=== PATIENT | female | born 1975 | race Caucasian/White ===

== ENCOUNTER 2019-03-16 12:26 | Emergency (ER) | payer SELFPAY ==
--- NOTE | 2019-03-16 12:39 | ED.SYNCOPE ---
HPI - Syncope General Chief Complaint: Syncope Stated Complaint: Near Syncope Time Seen by Provider: 03/16/19 12:27 Source: patient and EMS Mode of arrival: EMS Limitations: no limitations History of Present Illness HPI narrative: This is a 43-year-old female who comes to the emergency department with complaint of lightheadedness. Patient states that she has been having hematuria for several days. She has been having dysuria as well as urgency and frequency. She denies abdominal pain, she denies flank pain. She denies any fevers but felt a little bit chilled while she was at the police department. She was there getting finger prints for a permit which he started feeling lightheaded. She states it seemed like they got sort of white coloration sat or lied down and they put her legs up. Patient states she did not lose consciousness. She states she has felt under the weather for last several days and thinks she might be getting sick and possibly have a UTI. She states that she has had them on and off over the years. She has required antibiotics in the past. She states she typically gets hematuria when she has UTIs. She thinks she may be anemic but she does not follow the primary care. She denies any other medical issues. She states she has had a D&C in the past and cryo on her cervix no other surgeries. She denies tobacco, very rare alcohol, no illicit. She is accompanied by her young son. Related Data Home Medications Medication Instructions Recorded Confirmed Lactobacillus acidophilus 1 tab PO QDAY #0 01/07/17 [cranberry] #0 01/07/17 cholecalciferol (vitamin D3) 1 tab PO QDAY #0 01/07/17 [Vitamin D3] magnesium citrate 100 mg PO #0 01/07/17 multivitamin [Multiple Vitamins] 1 tab PO QDAY #0 01/07/17 omega 1-bir-loh-fish oil [Fish Oil] 1,000 mg PO #0 01/07/17 phytonadione (vitamin K1) 5 mg PO #0 01/07/17 [Mephyton] Previous Rx's Medication Instructions Recorded ciprofloxacin HCl 500 mg PO BID #14 tab 03/16/19 phenazopyridine [Pyridium] 200 mg PO TID PRN 2 Days #6 tab 03/16/19 Allergies Allergy/AdvReac Type Severity Reaction Status Date / Time erythromycin base Allergy Intermediate Unverified 11/18/17 12:36 Review of Systems Review of Systems ROS Unobtainable: All systems reviewed & are unremarkable except as noted in HPI and below Constitutional Reports chills, Denies fever(s), Denies lethargy and Denies weakness Cardiovascular Denies chest pain, Denies diaphoresis, Denies syncope, Reports rapid heart rate, Denies edema, Denies irregular heart rhythm, Reports lightheadedness, Denies palpitations, Denies dyspnea, Denies dyspnea on exertion and Denies orthopnea Respiratory Denies chest congestion, Denies cough, Denies hemoptysis, Denies dyspnea, Denies dyspnea on exertion and Denies wheezing Gastrointestinal Gastrointestinal: Denies abdominal pain, Denies melena, Denies bloating, Denies change in bowel habits, Denies diarrhea, Reports nausea (mild, resolved.) and Denies vomiting Genitourinary Reports as per HPI, Denies abnormal menses, Denies abnormal vaginal bleeding, Denies hematuria, Reports urinary frequency, Reports dysuria, Denies pelvic pain, Denies flank pain, Denies urinary incontinence, Denies urinary hesitancy, Denies urinary urgency and Denies vaginal discharge Musculoskeletal Denies back pain, Denies numbness and Reports tingling (in hands while urinating) Integumentary/Breasts Denies rash Neurologic Denies syncope, Denies numbness, Reports tingling (in hands while urinating) and Denies weakness Endocrine Denies palpitations Allergic/Immunologic Denies wheezing [facility] Surgical History History of third molar tooth extraction Status post dilation and curettage Social History (Updated 03/16/19 @ 12:42 by oRro George DO) marital status: Smoking Status: Never smoker alcohol intake: current substance use type: does not use Exam Narrative Exam Narrative: GEN: well nourished, well appearing female, alert and oriented x 3, patient appears to be in mild distress. HEENT: Atraumatic, pupils are equal round reactive to light, extraocular movements are intact, nares are clear, there is no conjunctival pallor. HEART: Regular rate and rhythm without murmur, clicks, rubs. No carotid bruits, pulses are equal in upper and lower extremities LUNGS:Lungs clear to auscultation, no wheezes, rales, crackles, chest moves symmetrically ABD:bowel sounds normal, soft, non-tender, no guarding, rebound, rigidity, no masses noted, no hepatosplenomegaly :No CVA tenderness MSCL: Non-tender, no muscle atrophy, muscles strength 5/5 upper and lower extremities, full range of motion NEURO:CN 2-12 intact, sensation normal Initial Vital Signs Initial Vital Signs: Vital Signs Temperature 98.9 F 03/16/19 12:45 Pulse Rate 76 03/16/19 12:45 Respiratory Rate 20 03/16/19 12:45 Blood Pressure 104/58 L 03/16/19 12:45 Pulse Oximetry 99 03/16/19 12:45 Scores GCS [place] coma scale eye opening: Spontaneous [place] coma scale verbal response: Orientated [place] coma scale motor response: Obey commands [place] coma scale total score: 15 Course Orders Ordered: ED Orders 03/16/19 12:43 Test Urine Stat UA dip and micro [Urinalysis and Microscopic] Stat Urine Culture Stat 03/16/19 13:12 Basic Metabolic Panel Stat Complete Blood Count AUTO DIFF Stat Discontinued Medications Sodium Chloride (Normal Saline 0.9%) 1,000 mls @ 1,000 mls/hr IV BOLUS ONE Stop: 03/16/19 14:48 Last Infusion: 03/16/19 15:31 Dose: 0 mls/hr Admin: 03/16/19 13:51 Dose: 1,000 mls/hr Vital Signs - 8 hr 03/16/19 12:45 03/16/19 13:10 03/16/19 13:30 Temperature 98.9 F Pulse Rate 76 73 74 Respiratory Rate 20 10 L 12 Blood Pressure 104/58 L Blood Pressure [Left Arm] 107/64 100/64 Pulse Oximetry 99 100 100 03/16/19 14:00 03/16/19 14:55 03/16/19 15:37 Temperature Pulse Rate 75 72 72 Respiratory Rate 19 16 Blood Pressure 111/76 Blood Pressure [Left Arm] 107/69 110/61 Pulse Oximetry 100 100 100 MDM - Syncope Lab Data Result diagrams: 03/16/19 13:12 03/16/19 13:12 Lab Results 03/16/19 03/16/19 03/16/19 Range/Units 12:43 12:43 13:12 WBC 16.0 H (4.5-11.0) X10^3/uL RBC 4.29 (4.0-5.2) X10^6/uL Hgb 13.4 (12.0-16.0) g/dL Hct 39.7 (36-46) % MCV 92.6 (80-100) fL MCH 31.3 (26-34) PG MCHC 33.8 (30-36) % RDW 12.5 (11.6-14.8) % Plt Count 301 (150-400) X10^3/uL Neut % (Auto) 80.9 H (50-75) % Lymph % (Auto) 10.8 L (25-40) % [place] % (Auto) 7.3 (3-14) % Eos % (Auto) 0.5 L (2-4) % Baso % (Auto) 0.5 (0-2) % Neut # (Auto) 56655 H (6166-3660) /uL Lymph # (Auto) 1700 (2163-6169) /uL [place] # (Auto) 1200 H (0-900) /uL Eos # (Auto) 100 (0-450) /uL Baso # (Auto) 100 (0-100) /uL Sodium (137-145) mmol/L Potassium (3.4-5.1) mmol/L Chloride (98-107) mmol/L Carbon Dioxide (22-32) mmol/L BUN (7-17) mg/dL Creatinine (0.52-1.04) mg/dL Estimated GFR (>60) mL/min BUN/Creatinine Ratio (6-22) Glucose (70-100) mg/dL Calcium (8.4-10.2) mg/dL Urine Color Red Urine Appearance Turbid Urine pH 8.5 H (4.5-8.0) Ur Specific [place] 1.020 (1.000-1.035) Urine Protein 3+ H (Negative) Urine Glucose (UA) Negative (Negative) g/dL Urine Ketones Negative (NEGATIVE) Urine Occult Blood 3+ H (Negative) Urine Nitrate Negative (Negative) Urine Bilirubin Negative (NEGATIVE) Urine Urobilinogen 0.2 (0.2) E.U./dL Ur Leukocyte Esterase 1+ H (NEGATIVE) Urine RBC >100/hpf H (0-5/HPF) Urine WBC >100/hpf H (0-5/HPF) Urine Bacteria None seen (None) Ur Culture Indicated? Specimen cultured Urine Test Negative (Negative) 03/16/19 Range/Units 13:12 WBC (4.5-11.0) X10^3/uL RBC (4.0-5.2) X10^6/uL Hgb (12.0-16.0) g/dL Hct (36-46) % MCV (80-100) fL MCH (26-34) PG MCHC (30-36) % RDW (11.6-14.8) % Plt Count (150-400) X10^3/uL Neut % (Auto) (50-75) % Lymph % (Auto) (25-40) % [place] % (Auto) (3-14) % Eos % (Auto) (2-4) % Baso % (Auto) (0-2) % Neut # (Auto) (4395-7727) /uL Lymph # (Auto) (2844-3398) /uL [place] # (Auto) (0-900) /uL Eos # (Auto) (0-450) /uL Baso # (Auto) (0-100) /uL Sodium 139 (137-145) mmol/L Potassium 3.4 (3.4-5.1) mmol/L Chloride 101 (98-107) mmol/L Carbon Dioxide 29 (22-32) mmol/L BUN 16 (7-17) mg/dL Creatinine 0.80 (0.52-1.04) mg/dL Estimated GFR > 60.0 (>60) mL/min BUN/Creatinine Ratio 20.0 (6-22) Glucose 81 (70-100) mg/dL Calcium 9.3 (8.4-10.2) mg/dL Urine Color Urine Appearance Urine pH (4.5-8.0) Ur Specific [place] (1.000-1.035) Urine Protein (Negative) Urine Glucose (UA) (Negative) g/dL Urine Ketones (NEGATIVE) Urine Occult Blood (Negative) Urine Nitrate (Negative) Urine Bilirubin (NEGATIVE) Urine Urobilinogen (0.2) E.U./dL Ur Leukocyte Esterase (NEGATIVE) Urine RBC (0-5/HPF) Urine WBC (0-5/HPF) Urine Bacteria (None) Ur Culture Indicated? Urine Test (Negative) MDM Narrative Medical decision making narrative: Patient's lab work shows Patient was quite worried about cost, by her description she has had a lot hematuria dysuria urgency which makes me suspect she probably does have a UTI which may have led to her pre syncopal episode. Patient denies any chest pain, shortness of breath. She defers IV fluids but is willing to do an IV so we have axis and do basic blood work and point of care urine. Patient has frankly bloody urine, sent for UA and shows leuks as well as blood. No nitrates are noted. Microscopy shows greater than 100 RBCs and WBCs. White count of 16 along with no anemia but electrolytes are normal with normal renal function. I discussed with patient I suspect she does have a significant UTI and/or possibly pyelo although she has been afebrile with no flank pain no nausea or vomiting or other signs I would treat her initially the UTI. We did discuss doing additional imaging patient defers. She was able to ambulate to the bathroom but felt a little lightheaded, refused IV fluids again and wanted orally hydrate but then changed her mind later. 1 L fluid was given and re-evaluation shows improvement of patient. She is feeling better, ambulating about the department. Discharge Plan Departure Patient Disposition: Home Clinical Impression: UTI (urinary tract infection), Hematuria Discharge Date/Time: 03/16/19 15:38 Interventions: ED Discharge Assessment Last Done: 03/16/19 15:37 Activity Restrictions/Additional Instructions: Follow up for recheck and to make sure your hematuria has resolved. If you continue to have hematuria you should have further imaging or evaluation. Take antibiotics until completely gone. Take Pyridium 1 tablet every 6-8 hours as needed for bladder spasm. This medication will cause your urine to be bright orange. You may take Tylenol up to a 1000 mg every 8 hours as needed for pain and/or ibuprofen up to 600 mg every 6 hours as needed for pain. Return to the emergency department for fevers greater than 100.4 F, passing out or recurrent lightheadedness, persistent vomiting, new chest pain, shortness of breath, no abdominal pain, back or flank pain, worsening symptoms, black or bloody stools or other new or concerning symptoms. Prescriptions: New phenazopyridine [Pyridium] 200 mg tablet 200 mg PO TID PRN (Reason: pain) 2 Days Qty: 6 RF: 0 ciprofloxacin HCl 500 mg tablet 500 mg PO BID Qty: 14 RF: 0 No Action multivitamin [Multiple Vitamins] 1 EACH tablet 1 tab PO QDAY Qty: 0 RF: 0 Lactobacillus acidophilus 1 EACH capsule 1 tab PO QDAY Qty: 0 RF: 0 phytonadione (vitamin K1) [Mephyton] 5 MG tablet 5 mg PO Qty: 0 RF: 0 cholecalciferol (vitamin D3) [Vitamin D3] 2,000 UNIT tablet 1 tab PO QDAY Qty: 0 RF: 0 omega 7-pai-bvh-fish oil [Fish Oil] 1,000 MG capsule 1,000 mg PO Qty: 0 RF: 0 magnesium citrate 100 MG tablet 100 mg PO Qty: 0 RF: 0 [cranberry] Qty: 0 RF: 0 Referrals: Niurka Orellana MD [Primary Care Provider] -
--- NOTE | 2019-03-16 12:44 | ED_ITS ---
HPI - Syncope General Chief Complaint: Syncope Stated Complaint: Near Syncope Time Seen by Provider: 03/16/19 12:27 Source: patient and EMS Mode of arrival: EMS Limitations: no limitations History of Present Illness HPI narrative: This is a 43-year-old female who comes to the emergency department with complaint of lightheadedness. Patient states that she has been having hematuria for several days. She has been having dysuria as well as urgency and frequency. She denies abdominal pain, she denies flank pain. She denies any fevers but felt a little bit chilled while she was at the police department. She was there getting finger prints for a permit which he started feeling lightheaded. She states it seemed like they got sort of white coloration sat or lied down and they put her legs up. Patient states she did not lose consciousness. She states she has felt under the weather for last several days and thinks she might be getting sick and possibly have a UTI. She states that she has had them on and off over the years. She has required antibiotics in the past. She states she typically gets hematuria when she has UTIs. She thinks she may be anemic but she does not follow the primary care. She denies any other medical issues. She states she has had a D&C in the past and cryo on her cervix no other surgeries. She denies tobacco, very rare alcohol, no illicit. She is accompanied by her young son. Related Data Home Medications Medication Instructions Recorded Confirmed Lactobacillus acidophilus 1 tab PO QDAY #0 01/07/17 [cranberry] #0 01/07/17 cholecalciferol (vitamin D3) 1 tab PO QDAY #0 01/07/17 [Vitamin D3] magnesium citrate 100 mg PO #0 01/07/17 multivitamin [Multiple Vitamins] 1 tab PO QDAY #0 01/07/17 omega 2-wjh-uqi-fish oil [Fish Oil] 1,000 mg PO #0 01/07/17 phytonadione (vitamin K1) 5 mg PO #0 01/07/17 [Mephyton] Previous Rx's Medication Instructions Recorded ciprofloxacin HCl 500 mg PO BID #14 tab 03/16/19 phenazopyridine [Pyridium] 200 mg PO TID PRN 2 Days #6 tab 03/16/19 Allergies Allergy/AdvReac Type Severity Reaction Status Date / Time erythromycin base Allergy Intermediate Unverified 11/18/17 12:36 Review of Systems Review of Systems ROS Unobtainable: All systems reviewed & are unremarkable except as noted in HPI and below Constitutional Reports chills, Denies fever(s), Denies lethargy and Denies weakness Cardiovascular Denies chest pain, Denies diaphoresis, Denies syncope, Reports rapid heart rate, Denies edema, Denies irregular heart rhythm, Reports lightheadedness, Denies palpitations, Denies dyspnea, Denies dyspnea on exertion and Denies orthopnea Respiratory Denies chest congestion, Denies cough, Denies hemoptysis, Denies dyspnea, Denies dyspnea on exertion and Denies wheezing Gastrointestinal Gastrointestinal: Denies abdominal pain, Denies melena, Denies bloating, Denies change in bowel habits, Denies diarrhea, Reports nausea (mild, resolved.) and Denies vomiting Genitourinary Reports as per HPI, Denies abnormal menses, Denies abnormal vaginal bleeding, Denies hematuria, Reports urinary frequency, Reports dysuria, Denies pelvic pain, Denies flank pain, Denies urinary incontinence, Denies urinary hesitancy, Denies urinary urgency and Denies vaginal discharge Musculoskeletal Denies back pain, Denies numbness and Reports tingling (in hands while urinating) Integumentary/Breasts Denies rash Neurologic Denies syncope, Denies numbness, Reports tingling (in hands while urinating) and Denies weakness Endocrine Denies palpitations Allergic/Immunologic Denies wheezing [facility] Surgical History History of third molar tooth extraction Status post dilation and curettage Social History (Updated 03/16/19 @ 12:42 by Roro George DO) marital status: Smoking Status: Never smoker alcohol intake: current substance use type: does not use Exam Narrative Exam Narrative: GEN: well nourished, well appearing female, alert and oriented x 3, patient appears to be in mild distress. HEENT: Atraumatic, pupils are equal round reactive to light, extraocular movements are intact, nares are clear, there is no conjunctival pallor. HEART: Regular rate and rhythm without murmur, clicks, rubs. No carotid bruits, pulses are equal in upper and lower extremities LUNGS:Lungs clear to auscultation, no wheezes, rales, crackles, chest moves symmetrically ABD:bowel sounds normal, soft, non-tender, no guarding, rebound, rigidity, no ma sses noted, no hepatosplenomegaly :No CVA tenderness MSCL: Non-tender, no muscle atrophy, muscles strength 5/5 upper and lower extremities, full range of motion NEURO:CN 2-12 intact, sensation normal Initial Vital Signs Initial Vital Signs: Vital Signs Temperature 98.9 F 03/16/19 12:45 Pulse Rate 76 03/16/19 12:45 Respiratory Rate 20 03/16/19 12:45 Blood Pressure 104/58 L 03/16/19 12:45 Pulse Oximetry 99 03/16/19 12:45 Scores GCS [place] coma scale eye opening: Spontaneous [place] coma scale verbal response: Orientated [place] coma scale motor response: Obey commands [place] coma scale total score: 15 Course Orders Ordered: ED Orders 03/16/19 12:43 Test Urine Stat UA dip and micro [Urinalysis and Microscopic] Stat Urine Culture Stat 03/16/19 13:12 Basic Metabolic Panel Stat Complete Blood Count AUTO DIFF Stat Discontinued Medications Sodium Chloride (Normal Saline 0.9%) 1,000 mls @ 1,000 mls/hr IV BOLUS ONE Stop: 03/16/19 14:48 Last Infusion: 03/16/19 15:31 Dose: 0 mls/hr Admin: 03/16/19 13:51 Dose: 1,000 mls/hr Vital Signs - 8 hr 03/16/19 12:45 03/16/19 13:10 03/16/19 13:30 Temperature 98.9 F Pulse Rate 76 73 74 Respiratory Rate 20 10 L 12 Blood Pressure 104/58 L Blood Pressure [Left Arm] 107/64 100/64 Pulse Oximetry 99 100 100 03/16/19 14:00 03/16/19 14:55 03/16/19 15:37 Temperature Pulse Rate 75 72 72 Respiratory Rate 19 16 Blood Pressure 111/76 Blood Pressure [Left Arm] 107/69 110/61 Pulse Oximetry 100 100 100 MDM - Syncope Lab Data Result diagrams: 03/16/19 13:12 03/16/19 13:12 Lab Results 03/16/19 03/16/19 03/16/19 Range/Units 12:43 12:43 13:12 WBC 16.0 H (4.5-11.0) X10^3/uL RBC 4.29 (4.0-5.2) X10^6/uL Hgb 13.4 (12.0-16.0) g/dL Hct 39.7 (36-46) % MCV 92.6 (80-100) fL MCH 31.3 (26-34) PG MCHC 33.8 (30-36) % RDW 12.5 (11.6-14.8) % Plt Count 301 (150-400) X10^3/uL Neut % (Auto) 80.9 H (50-75) % Lymph % (Auto) 10.8 L (25-40) % [place] % (Auto) 7.3 (3-14) % Eos % (Auto) 0.5 L (2-4) % Baso % (Auto) 0.5 (0-2) % Neut # (Auto) 59025 H (3243-6857) /uL Lymph # (Auto) 1700 (4249-0045) /uL [place] # (Auto) 1200 H (0-900) /uL Eos # (Auto) 100 (0-450) /uL Baso # (Auto) 100 (0-100) /uL Sodium (137-145) mmol/L Potassium (3.4-5.1) mmol/L Chloride (98-107) mmol/L Carbon Dioxide (22-32) mmol/L BUN (7-17) mg/dL Creatinine (0.52-1.04) mg/dL Estimated GFR (>60) mL/min BUN/Creatinine Ratio (6-22) Glucose (70-100) mg/dL Calcium (8.4-10.2) mg/dL Urine Color Red Urine Appearance Turbid Urine pH 8.5 H (4.5-8.0) Ur Specific [place] 1.020 (1.000-1.035) Urine Protein 3+ H (Negative) Urine Glucose (UA) Negative (Negative) g/dL Urine Ketones Negative (NEGATIVE) Urine Occult Blood 3+ H (Negative) Urine Nitrate Negative (Negative) Urine Bilirubin Negative (NEGATIVE) Urine Urobilinogen 0.2 (0.2) E.U./dL Ur Leukocyte Esterase 1+ H (NEGATIVE) Urine RBC >100/hpf H (0-5/HPF) Urine WBC >100/hpf H (0-5/HPF) Urine Bacteria None seen (None) Ur Culture Indicated? Specimen cultured Urine Test Negative (Negative) 03/16/19 Range/Units 13:12 WBC (4.5-11.0) X10^3/uL RBC (4.0-5.2) X10^6/uL Hgb (12.0-16.0) g/dL Hct (36-46) % MCV (80-100) fL MCH (26-34) PG MCHC (30-36) % RDW (11.6-14.8) % Plt Count (150-400) X10^3/uL Neut % (Auto) (50-75) % Lymph % (Auto) (25-40) % [place] % (Auto) (3-14) % Eos % (Auto) (2-4) % Baso % (Auto) (0-2) % Neut # (Auto) (4823-8214) /uL Lymph # (Auto) (6752-1122) /uL [place] # (Auto) (0-900) /uL Eos # (Auto) (0-450) /uL Baso # (Auto) (0-100) /uL Sodium 139 (137-145) mmol/L Potassium 3.4 (3.4-5.1) mmol/L Chloride 101 (98-107) mmol/L Carbon Dioxide 29 (22-32) mmol/L BUN 16 (7-17) mg/dL Creatinine 0.80 (0.52-1.04) mg/dL Estimated GFR > 60.0 (>60) mL/min BUN/Creatinine Ratio 20.0 (6-22) Glucose 81 (70-100) mg/dL Calcium 9.3 (8.4-10.2) mg/dL Urine Color Urine Appearance Urine pH (4.5-8.0) Ur Specific [place] (1.000-1.035) Urine Protein (Negative) Urine Glucose (UA) (Negative) g/dL Urine Ketones (NEGATIVE) Urine Occult Blood (Negative) Urine Nitrate (Negative) Urine Bilirubin (NEGATIVE) Urine Urobilinogen (0.2) E.U./dL Ur Leukocyte Esterase (NEGATIVE) Urine RBC (0-5/HPF) Urine WBC (0-5/HPF) Urine Bacteria (None) Ur Culture Indicated? Urine Test (Negative) MDM Narrative Medical decision making narrative: Patient's lab work shows Patient was quite worried about cost, by her description she has had a lot hematuria dysuria urgency which makes me suspect she probably does have a UTI which may have led to her pre syncopal episode. Patient denies any chest pain, shortness of breath. She defers IV fluids but is willing to do an IV so we have axis and do basic blood work and point of care urine. Patient has frankly bloody urine, sent for UA and shows leuks as well as blood. No nitrates are noted. Microscopy shows greater than 100 RBCs and WBCs. White count of 16 along with no anemia but electrolytes are normal with normal renal function. I discussed with patient I suspect she does have a significant UTI and/or possibly pyelo although she has been afebrile with no flank pain no nausea or vomiting or other signs I would treat her initially the UTI. We did discuss doing additional imaging patient defers. She was able to ambulate to the bathroom but felt a little lightheaded, refused IV fluids again and wanted orally hydrate but then changed her mind later. 1 L fluid was given and re-evaluation shows improvement of patient. She is feeling better, ambulating about the department. Discharge Plan Departure Patient Disposition: Home Clinical Impression: UTI (urinary tract infection), Hematuria Discharge Date/Time: 03/16/19 15:38 Interventions: ED Discharge Assessment Last Done: 03/16/19 15:37 Activity Restrictions/Additional Instructions: Follow up for recheck and to make sure your hematuria has resolved. If you continue to have hematuria you should have further imaging or evaluation. Take antibiotics until completely gone. Take Pyridium 1 tablet every 6-8 hours as needed for bladder spasm. This medica tion will cause your urine to be bright orange. You may take Tylenol up to a 1000 mg every 8 hours as needed for pain and/or ibuprofen up to 600 mg every 6 hours as needed for pain. Return to the emergency department for fevers greater than 100.4 F, passing out or recurrent lightheadedness, persistent vomiting, new chest pain, shortness of breath, no abdominal pain, back or flank pain, worsening symptoms, black or bloody stools or other new or concerning symptoms. Prescriptions: New phenazopyridine [Pyridium] 200 mg tablet 200 mg PO TID PRN (Reason: pain) 2 Days Qty: 6 RF: 0 ciprofloxacin HCl 500 mg tablet 500 mg PO BID Qty: 14 RF: 0 No Action multivitamin [Multiple Vitamins] 1 EACH tablet 1 tab PO QDAY Qty: 0 RF: 0 Lactobacillus acidophilus 1 EACH capsule 1 tab PO QDAY Qty: 0 RF: 0 phytonadione (vitamin K1) [Mephyton] 5 MG tablet 5 mg PO Qty: 0 RF: 0 cholecalciferol (vitamin D3) [Vitamin D3] 2,000 UNIT tablet 1 tab PO QDAY Qty: 0 RF: 0 omega 8-ksc-bnt-fish oil [Fish Oil] 1,000 MG capsule 1,000 mg PO Qty: 0 RF: 0 magnesium citrate 100 MG tablet 100 mg PO Qty: 0 RF: 0 [cranberry] Qty: 0 RF: 0 Referrals: Niurka Orellana MD [Primary Care Provider] -
[2019-03-16 12:45] VITALS: BP 104/58; PULSE 76; RESP 20; TEMP 37.2; O2SAT 99; BMI 21.0
[2019-03-16 13:08] LABS: Bacteria Urine None Seen
[2019-03-16 13:10] VITALS: BP 107/64; PULSE 73; RESP 10; O2SAT 100
[2019-03-16 13:17] LABS: Appearance Urine UA TURBID; Bilirubin Urine UA NEGATIVE (NEGATIVE); Color Urine UA RED; Glucose Urine UA NEGATIVE (Negative); Ketones Urine UA NEGATIVE (NEGATIVE); Leukocyte Esterase Urine UA 1+ (NEGATIVE); Nitrite Urine UA NEGATIVE (Negative); Occult Blood Urine UA 3+ (Negative); Protein Urine UA 3+ (Negative); Urobilinogen Urine UA 0.2 E.U./dL (0.2); pH Urine UA 8.5 (4.5-8.0)
[2019-03-16 13:18] LABS: RBC Urine >100/HPF (0-5/HPF)
[2019-03-16 13:19] LABS: Add Manual Diff / Slide Review NO; Basophils Absolute Auto 100 /uL (0-100); Basophils Percent Auto 0.5 % (0-2); Eosinophils Absolute Auto 100 /uL (0-450); Eosinophils Percent Auto 0.5 % (2-4); Hematocrit 39.7 % (36-46); Hemoglobin 13.4 g/dL (12.0-16.0); Lymphocytes Absolute Auto 1700 /uL (1100-4500); Lymphocytes Percent Auto 10.8 % (25-40); Mean Corpuscular HGB Conc 33.8 % (30-36); Mean Corpuscular Hemoglobin 31.3 PG (26-34); Mean Corpuscular Volume 92.6 fL (80-100); Monocytes Absolute Auto 1200 /uL (0-900); Monocytes Percent Auto 7.3 % (3-14); Neutrophils Absolute Auto 12900 /uL (1500-7000); Neutrophils Percent Auto 80.9 % (50-75); Platelet Count 301 X10^3/uL (150-400); Red Blood Cell Count 4.29 X10^6/uL (4.0-5.2); Red Cell Distribution Width 12.5 % (11.6-14.8)
[2019-03-16 13:19] LABS: Culture Indicated Urine Specimen Cultured; Pregnancy Test Urine Negative (Negative); WBC Urine >100/HPF (0-5/HPF)
[2019-03-16 13:30] VITALS: BP 100/64; PULSE 74; RESP 12; O2SAT 100
[2019-03-16 13:31] LABS: Blood Urea Nitrogen 16 mg/dL (7-17); Calcium 9.3 mg/dL (8.4-10.2); Carbon Dioxide 29 mmol/L (22-32); Chloride 101 mmol/L (98-107); Estimated Glomerular Filt Rate > 60.0 mL/min (>60); Glucose 81 mg/dL (70-100); HEMOLYSIS < 15 (0-50); Potassium 3.4 mmol/L (3.4-5.1); Sodium 139 mmol/L (137-145)
[2019-03-16] MEDS: SODIUM CHLORIDE 0.9% 1,000 ML 1000 ML IV (13:51)
[2019-03-16 14:00] VITALS: BP 107/69; PULSE 75; RESP 19; O2SAT 100
[2019-03-16 14:55] VITALS: BP 110/61; PULSE 72; RESP 16; O2SAT 100
[2019-03-16 15:37] VITALS: BP 111/76; PULSE 72; O2SAT 100
== END 2019-03-16 15:38 | disposition home or self-care (01) ==
LOC: ED 12:48
PROVIDERS: Emergency Provider Emergency Medicine; Family Provider Obstetrics & Gynecology; PCP Family Medicine
DX: N39.0 Urinary tract infection, site not specified (principal); R31.9 Hematuria, unspecified
CPT/HCPCS: 36591; 80048; 81001; 81025; 85025; 87077; 87086; 87186; 96360; 96361; 99283

== ENCOUNTER → 2019-06-03 15:18 | Outpatient (CLI) | payer SELFPAY | PROVIDERS: Family Provider Obstetrics & Gynecology; PCP Family Medicine; Visit Provider Physician Assistant | DX: J02.9 Acute pharyngitis, unspecified (principal) | CPT/HCPCS: 87070 ==

== ENCOUNTER 2019-06-24 19:10 | Emergency (ER) | payer OTHER, SELFPAY ==
[2019-06-24 19:12] VITALS: BP 107/66; PULSE 72; RESP 18; TEMP 36.8; O2SAT 98
--- NOTE | 2019-06-24 19:15 | DI.RAD.S_ITS ---
PROCEDURE: XR TOE LT MIN 2V INDICATIONS: crush injury 1st digit distal portion TECHNIQUE: 3 views of the great toe(s) acquired. COMPARISON: None. FINDINGS: Bones: No fractures or dislocations. No suspicious bony lesions. Soft tissues: No suspicious soft tissue densities. IMPRESSION: No visible fractures. Dictated by: Kati Rose M.D. on 06/24/2019 at 20:11 Approved by: Kati Rose M.D. on 06/24/2019 at 20:12
--- NOTE | 2019-06-24 20:43 | ED.LOWEXIN ---
HPI - Extremity Injury (Lower) <SAPPHIRE Li - Last Filed: 06/24/19 20:50> General Chief Complaint: Extremity Injury, Lower Stated Complaint: BIG LEFT TOE INJURY Time Seen by Provider: 06/24/19 19:19 Source: patient Mode of arrival: Ambulatory Limitations: no limitations History of Present Illness HPI Narrative: The patient is a 43-year-old female nonsmoker with history of viral upper respiratory infection who presents with a chief complaint of a left great toe injury. She states she dropped a ladder on while at work. She states this happened at noon she worked the rest of the day on it. She states she can move it slightly, is not super concerned about a fracture. She has not taken anything for it. She has not applied ice. Related Data Home Medications Medication Instructions Recorded Confirmed Lactobacillus acidophilus 1 tab PO QDAY #0 01/07/17 06/03/19 [cranberry] #0 01/07/17 06/03/19 cholecalciferol (vitamin D3) 1 tab PO QDAY #0 01/07/17 06/03/19 [Vitamin D3] magnesium citrate 100 mg PO #0 01/07/17 06/03/19 multivitamin [Multiple Vitamins] 1 tab PO QDAY #0 01/07/17 06/03/19 omega 2-xop-ebc-fish oil [Fish Oil] 1,000 mg PO #0 01/07/17 06/03/19 phytonadione (vitamin K1) 5 mg PO #0 01/07/17 06/03/19 [Mephyton] Previous Rx's Medication Instructions Recorded benzonatate 100 mg capsule 100 mg PO BID PRN #14 cap 05/31/19 amoxicillin 875 mg-potassium 1 tab PO BID #20 tab 06/03/19 clavulanate 125 mg tablet Allergies Allergy/AdvReac Type Severity Reaction Status Date / Time erythromycin base Allergy Intermediate Verified 05/31/19 19:14 Review of Systems <SAPPHIRE Li - Last Filed: 06/24/19 20:50> Review of Systems Narrative: GENERAL: Denies chills, fatigue, malaise, fever, sweats. HEENT: Denies sinus pain, ear pain, sore throat, difficulty swallowing, dizziness. RESPIRATORY: Denies dyspnea, cough, wheezing, hemoptysis, sputum. CARDIOVASCULAR: Denies chest pain, palpitations, orthopnea, edema, GASTROINTESTINAL: Denies nausea, vomiting, abdominal pain, diarrhea, constipation, melena. : Denies dysuria, frequency, incontinence, hematuria, urinary retention. MUSCULOSKELETAL: See HPI SKIN: See HPI NEUROLOGIC: Denies weakness, headache, numbness, change in speech, confusion, seizures, incoordination. PSYCHIATRIC: No concerning psychosocial issues. 12 point review of systems is negative except for those stated above Patient History <SAPPHIRE Li - Last Filed: 06/24/19 20:50> Surgical History History of third molar tooth extraction Status post dilation and curettage Social History marital status: Smoking Status: Never smoker alcohol intake: current substance use type: does not use Substance Use Type: does not use Exam <SAPPHIRE Li - Last Filed: 06/24/19 20:50> Narrative Exam Narrative: GENERAL: This is a well-nourished, well-developed patient, in no acute distress HEAD: Atraumatic. Normocephalic. No temporal or scalp tenderness. EYES: Pupils equal round and reactive. Extraocular motions intact. No scleral icterus. No injection or drainage. ENT: Nose without bleeding, purulent drainage or septal hematoma. Throat without erythema, tonsillar hypertrophy or exudate. Uvula midline. Airway patent. NECK: Trachea midline. No JVD or lymphadenopathy. Supple, nontender, no meningeal signs. CARDIOVASCULAR: Regular rate and rhythm RESPIRATORY: No cough. No increased respiratory effort. No accessory muscle use. EXTREMITIES: Able flex and extend left great toe. Capillary refill less than 2 seconds. Positive pedal pulses. BACK: Nontender without deformity or crepitance. No flank tenderness. NEURO: AOx3. SKIN: Diffuse ecchymosis noted over left great toe. No bleeding. No breaks in skin. 3 mm subungual hematoma medial aspect of left great toe. Initial Vital Signs Initial Vital Signs: Vital Signs Temperature 98.2 F 06/24/19 19:12 Pulse Rate 72 06/24/19 19:12 Respiratory Rate 18 06/24/19 19:12 Blood Pressure 107/66 11/15/19 19:12 Pulse Oximetry 98 06/24/19 19:12 <Dominga Quiroz DO - Last Filed: 06/25/19 01:59> Initial Vital Signs Initial Vital Signs: Vital Signs Temperature 98.2 F 06/24/19 19:12 Pulse Rate 72 06/24/19 19:12 Respiratory Rate 18 06/24/19 19:12 Blood Pressure 107/66 06/24/19 19:12 Pulse Oximetry 98 06/24/19 19:12 Course <SAPPHIRE Li - Last Filed: 06/24/19 20:50> Orders Ordered: ED Orders 06/24/19 19:15 XR toe LT min 2V Stat Discontinued Medications Ketorolac Tromethamine (Toradol) 30 mg IM NOW ONE Stop: 06/24/19 20:43 Last Admin: 06/24/19 20:49 Dose: 30 mg Documented by: VANITA Vital Signs Vital signs: Vital Signs - 8 hr 06/24/19 19:12 06/24/19 21:01 Temperature 98.2 F Pulse Rate 72 98 H Respiratory Rate 18 16 Blood Pressure 107/66 Blood Pressure [Left Arm] 103/77 Pulse Oximetry 98 98 <Dominga Quiroz DO - Last Filed: 06/25/19 01:59> Orders Ordered: ED Orders 06/24/19 19:15 XR toe LT min 2V Stat Discontinued Medications Ketorolac Tromethamine (Toradol) 30 mg IM NOW ONE Stop: 06/24/19 20:43 Last Admin: 06/24/19 20:49 Dose: 30 mg Documented by: VANITA Vital Signs Vital signs: Vital Signs - 8 hr 06/24/19 19:12 06/24/19 21:01 Temperature 98.2 F Pulse Rate 72 98 H Respiratory Rate 18 16 Blood Pressure 107/66 Blood Pressure [Left Arm] 103/77 Pulse Oximetry 98 98 MDM - Extremity Injury (Lower) <SAPPHIRE Li - Last Filed: 06/24/19 20:50> Imaging Data Toe x-ray: Radiologist's impression: [address] [address] XRay Report Signed Patient: Ronda Okeefe KMR#: [id number] : 1975Acct:[id number] Age/Sex: 43 / FDate of Service: 06/24/19 Loc: ED Accession Number: [id number] Procedure: XR toe LT min 2V Ordering Provider: Esau Tai D.O. PROCEDURE: XR TOE LT MIN 2V INDICATIONS: crush injury 1st digit distal portion TECHNIQUE: 3 views of the great toe(s) acquired. COMPARISON: None. FINDINGS: Bones: No fractures or dislocations. No suspicious bony lesions. Soft tissues: No suspicious soft tissue densities. IMPRESSION: No visible fractures. Dictated by: Kati Rose M.D. on 06/24/2019 at 20:11 Approved by: Kati Rose M.D. on 06/24/2019 at 20:12 [facility] Narrative Medical decision making narrative: The patient is a 43-year-old female who presents with a chief complaint of dropping a ladder on her left great toe. She has no fracture on x-ray. She is neurovascularly intact. She was given Toradol in the emergency department for pain. Her subungual hematoma noted does not warrant drainage at this point time. I discussed at length [id number] medications as needed and able, not taking ibuprofen or any other NSAIDs 6-8 hours after Toradol. And strongly encouraged rest ice compression elevation. I suggested a few days off of work, but the patient states that she will work tomorrow regardless, so I encouraged rest if possible in gave her work note. Encourage that the patient contact [facility] [employer] [facility] [employer] for follow-up provider. Patient has no questions or concerns upon discharge and states understanding of return precautions as well as follow-up care. Discharge Plan Departure Patient Disposition: Home Clinical Impression: Contusion Qualifiers: Encounter type: initial encounter Contusion area: toe Toe: great toe Damage to nail status: without damage Laterality: left Qualified Code(s): S90.112A - Contusion of left great toe without damage to nail, initial encounter Great toe pain Qualifiers: Laterality: left Qualified Code(s): M79.675 - Pain in left toe(s) Discharge Date/Time: 06/24/19 21:23 Instructions: DI for Contusion, How To Perform RICE (Rest, Ice, Compress, Elevate), DI for Toe Sprain Activity Restrictions/Additional Instructions: As I discussed, your x-ray shows no acute fracture. This does not rule out a soft tissue injury such as a ligament or tendon injury. It is important that you follow up with primary care provider, especially if worsening or no improvement. There can be fractures that did not show up on initial x-ray. Please contact [employer], they can help you arrange a follow-up provider. Please do not use any NSAIDs such as ibuprofen or Aleve after the Toradol in the emergency department. Please use aggressive rest ice compression elevation. Come back to the emergency department for any acute concerns. Prescriptions: No Action benzonatate [Tessalon Perles] 100 mg capsule 100 mg PO BID PRN (Reason: cough) Qty: 14 RF: 0 amoxicillin-pot clavulanate [Augmentin] 875-125 mg tablet 1 tab PO BID Qty: 20 RF: 0 multivitamin [Multiple Vitamins] 1 EACH tablet 1 tab PO QDAY Qty: 0 RF: 0 Lactobacillus acidophilus 1 EACH capsule 1 tab PO QDAY Qty: 0 RF: 0 phytonadione (vitamin K1) [Mephyton] 5 MG tablet 5 mg PO Qty: 0 RF: 0 cholecalciferol (vitamin D3) [Vitamin D3] 2,000 UNIT tablet 1 tab PO QDAY Qty: 0 RF: 0 omega 2-dgb-zyj-fish oil [Fish Oil] 1,000 MG capsule 1,000 mg PO Qty: 0 RF: 0 magnesium citrate 100 MG tablet 100 mg PO Qty: 0 RF: 0 [cranberry] Qty: 0 RF: 0 Referrals: Niurka Orellana MD [Primary Care Provider] - Stand Alone Forms: Work Release Note
[2019-06-24] MEDS: KETOROLAC 60 MG/2 ML VIAL 30 MG IM (20:49)
[2019-06-24 21:01] VITALS: BP 103/77; PULSE 98; RESP 16; O2SAT 98
== END 2019-06-24 21:23 | disposition home or self-care (01) ==
PROVIDERS: Emergency Provider Nurse Practitioner Family; Family Provider Obstetrics & Gynecology; PCP Family Medicine
DX: S90.112A Contusion of left great toe without damage to nail, initial encounter (principal); W22.8XXA Striking against or struck by other objects, initial encounter; Y99.0 Civilian activity done for income or pay
CPT/HCPCS: 73660; 96372; 99282; 99283; J1885